=== PATIENT | male | born 1990 | race Caucasian/White ===

== ENCOUNTER 2022-03-13 08:10 | Emergency (ER) | payer OTHER, SELFPAY ==
[2022-03-13 08:11] VITALS: BP 116/81; PULSE 69; RESP 16; TEMP 36.6; O2SAT 100; BMI 31.4
[2022-03-13 08:30] VITALS: BP 120/75; PULSE 64; RESP 16; O2SAT 99
[2022-03-13 08:42] LABS: Alanine Aminotransferase 191 U/L (12-78); Albumin Level 4.9 g/dl (3.5-5.0); Albumin/Globulin Ratio 1.5 (1.1-1.8); Alkaline Phosphatase 63 U/L (38-126); Anion Gap 16.3 mEq/L (5-15); Aspartate Amino Transferase 130 U/L (17-59); Blood Urea Nitrogen 12 mg/dl (9-20); Calcium 9.6 mg/dl (8.4-10.2); Carbon Dioxide 31 mmol/L (22.0-30.0); Chloride 98 mmol/L (98-107); Creatinine Clearance Estimated 243 mL/min (50-200); Estimated Glomerular Filt Rate 132 ml/min (>60); GFR (African American) 160 ML/MIN (>60); Globulin 3.2 g/dL (1.3-3.2); Glucose 110 mg/dl (74-100); Lipase 65 U/L (23-300); Potassium 4.3 mmoL/L (3.5-5.1); Sodium 141 mmol/L (136-145); Total Protein,Serum 8.1 g/dl (6.3-8.2)
--- NOTE | 2022-03-13 08:42 | HMH.EDGENADL ---
Discharge Plan Disposition Patient Disposition: Home, Self-Care Condition: Good Prescriptions Prescriptions: New ondansetron 4 mg Tablet,Disintegrating 4 mg PO Q8H PRN (Reason: Nausea) Qty: 15 0RF Referrals Follow up/Referrals: Johnny Coombs [Primary Care Provider] - See instructions Activity Restrictions/Add. Instructions Additional Instructions/Restrictions: Follow-up on hepatitis panel lab with your primary care physician. Take antiemetic as prescribed return for persistent vomiting or any other symptoms within 8 hours. Follow-up with primary care physician within the next few days to repeat liver test. Abstain from alcohol until symptoms resolve. Clinical Impressions Clinical Impression: Hepatitis Instructions Patient Instructions: DI for Vomiting -- Adult Discharge ED Provider: Shar Perdue General Adult HPI General Chief complaint: Nausea/Vomiting/Diarrhea Stated complaint: vomiting, nausea Time Seen by Provider: 03/13/22 08:25 Mode of Arrival: Ambulatory Source of Information: Patient Limitations: No Limitations Description of Symptoms (Recalled from ER Triage Doc. by RN): Pt reports n/v since approx 10 pm lastnight. Pt reports stomach cramps that worsen when vomitting. Pt reports had a tooth pulled at dentist yesterday. History of Present Illness HPI narrative: 31-year-old male presents with nausea and vomiting. He says since last night he has had persistent symptoms. No vomiting blood, fever. He does say that he has occasional chills. No abdominal pain. No chest pain or shortness of breath. No diarrhea at this time. No headaches or neck stiffness. He said the main symptoms is the nausea. Related Data Previous Rx's Medication Instructions Recorded ondansetron 4 mg disintegrating 4 mg PO Q8H PRN Nausea #15 tabs 03/13/22 tablet Allergies Allergy/AdvReac Type Severity Reaction Status Date / Time No Known Allergies Allergy Unverified 06/10/17 15:39 PFSH PFSH Social History Smoking Status: Current every day smoker tobacco type: cigarettes packs per day: 1 alcohol intake: never current occupational status: unemployed Travel in the last 8 weeks: None ROS Obtained: Yes All systems reviewed & no additional complaints except as documented Physical Exam General General appearance: alert and in no apparent distress Eye Eye exam: Present PERRL and EOMI ENT ENT exam: Present normal exam and normal oropharynx Neck Neck exam: Present normal inspection Chest Chest inspection: Present symmetric chest wall rise Respiratory Respiratory exam: Present normal lung sounds bilaterally; Absent respiratory distress Cardiovascular Cardiovascular exam: Present regular rate and normal rhythm Abdominal Exam Abdominal exam: Present soft; Absent distention, tenderness, guarding, rebound, Beyer's sign or tenderness at McBurney's Point Rectal Exam Rectal exam: Present deferred Back Exam Back exam: Present normal inspection Neurological Exam Neurological exam: Present alert and oriented X3 Psychiatric Psychiatric exam: Present normal affect and normal mood Skin Skin exam: Present warm, dry and intact Lymphatic Lymphatic Findings: no adenopathy Medical Decision Making Medical Records Medical records reviewed: Yes I reviewed the patient's medical records. MR Comment: 31-year-old male presents with nausea and vomiting for 1 day. He is in no acute distress comfortable in the room. He has no abdominal pain or abdominal tenderness on exam. Particularly no tenderness in right lower quadrant or right upper quadrant or concern for surgical emergency. Plan to give symptomatic treatment and assess labs and reassess. 10 AM patient in no acute distress at this time symptoms have completely resolved. Ultrasound shows gallbladder sludge with liver inflammation. Sent viral hepatitis panel however it is a send out. He will follow-up on the results with his primary care physician. Recommend
[2022-03-13 08:47] LABS: Basophils # 0.2 K/mm3 (0-0.2); Basophils % 1.6 % (0.1-2.0); Eosinophils # 0.1 K/mm3 (0.0-0.4); Eosinophils % 1.1 % (0.1-12.0); Hematocrit 56.7 % (42.0-52.0); Lymphocytes # 1.6 K/mm3 (0.7-4.5); Lymphocytes % 13.2 % (10-50); Mean Corpuscular HGB Conc 33.2 g/dL (31.8-35.4); Mean Corpuscular Hemoglobin 31.2 pg (27.0-31.2); Mean Corpuscular Volume 94.1 fl (80-94); Mean Platelet Volume 10.2 fl (7.4-10.4); Monocytes # 0.7 K/mm3 (0.1-1.0); Monocytes % 5.8 % (1.7-9.3); Neutrophils # 9.2 K/mm3 (1.8-7.8); Neutrophils % 78.3 % (37.0-80.0); Platelet Count 179 K/mm3 (142-424); Red Blood Count 6.03 M/mm3 (4.60-6.20); Red Cell Distribution Width 13.1 % (11.5-17.5); White Blood Count 11.7 K/mm3 (4.8-10.8)
--- NOTE | 2022-03-13 08:52 | US_ITS ---
FINAL REPORT CLINICAL HISTORY: transaminitis, RUQ pain FINDINGS: Ultrasound images of the right upper quadrant were obtained. The liver parenchyma has focal fatty infiltration. The gallbladder is well visualized and the wall appears normal. There are no gallstones. The common duct is normal. Limited images of the right kidney demonstrate a 1.5 cm parapelvic cyst. IMPRESSION: Focal fatty infiltration of the liver. 1.5 cm right parapelvic renal cyst. Reviewed, Interpreted and Dictated by Ede Dumont MD Transcribed by Eddy Lerma Authenticated and [facility]
[2022-03-13 09:02] LABS: Hemoglobin 18.8 g/dL (14.1-18.0)
--- NOTE | 2022-03-13 09:28 | ECG_ITS ---
APPROVED REPORT Exam: Resting ECG HR:59 bpm ECG Measurements Heart Rate 59 AXES OK 179 P 74 QRSd 109 QRS 69 QT 415 T 55 QTc 415 Conclusion SINUS BRADYCARDIA BORDERLINE ECG UNCONFIRMED REPORT Electronically signed by : Wilbert Bennett MD 03/13/2022 17:41:53
--- NOTE | 2022-03-13 09:57 | PC.NURSE ---
ASHLI GLASER at going over test results.
[2022-03-13 10:31] VITALS: BP 106/47; PULSE 58; RESP 20; TEMP 36.6; O2SAT 99
== END 2022-03-13 10:33 | disposition home or self-care (01) ==
PROVIDERS: Emergency Provider Emergency Medicine; PCP Pediatrics
DX: K75.9 Inflammatory liver disease, unspecified (principal)
CPT/HCPCS: 76705; 80053; 83690; 85025; 93005; 96361; 96374; 99284

== ENCOUNTER 2024-11-07 10:28 | Emergency (ER) | payer MEDICAID, SELFPAY ==
[2024-11-07 10:43] VITALS: BP 133/74; PULSE 76; RESP 18; TEMP 37.1; O2SAT 98; BMI 30.8
[2024-11-07] MEDS: TET/DIPHTH/PERT-ADULT 0.5ML SYRINGE 0.5 ML IM (11:41)
--- NOTE | 2024-11-07 12:06 | HMH.EDGENADL ---
Discharge Plan Disposition Patient Disposition: Home, Self-Care Prescriptions Prescriptions: New cephalexin 500 mg capsule 500 mg PO TID 5 Days Qty: 15 0RF No Action ondansetron 4 mg Tablet,Disintegrating 4 mg PO Q8H PRN (Reason: Nausea) Qty: 15 0RF Referrals Follow up/Referrals: Johnny Coombs [Primary Care Provider] - See instructions Activity Restrictions/Add. Instructions Additional Instructions/Restrictions: Please watch for spreading redness or pus coming from your wound and take your prophylactic antibiotics and have your sutures removed in 7 to 10 days. Keep topical antibiotic ointment such as Neosporin on this daily for the next week as well. Clinical Impressions Clinical Impression: Laceration of knee, left Instructions Patient Instructions: DI for Laceration Repair Print Language Print Language: Ukrainian Discharge ED Provider: Carin Grace General Adult HPI General Chief complaint: Wound/Laceration Stated complaint: [id number] to L knee Time Seen by Provider: 11/07/24 11:44 Mode of Arrival: Ambulatory Source of Information: Patient Description of Symptoms (Recalled from ER Triage Doc. by RN): left knee laceration. was grinding on a piece of machinery and it slipped History of Present Illness HPI narrative: 34-year-old male with medial left knee laceration from a piece of grinding machinery that was contaminated with soil and rust. Related Data Previous Rx's ?Medication ?Instructions ?Recorded ondansetron 4 mg disintegrating 4 mg PO Q8H PRN Nausea #15 tabs 03/13/22 tablet cephalexin 500 mg capsule 500 mg PO TID 5 days #15 caps 11/07/24 Allergies Allergy/AdvReac Type Severity Reaction Status Date / Time No Known Allergies Allergy Unverified 06/10/17 15:39 [facility] Disclaimer: The information contained in this section may have been updated after the patient was seen, as this information can be updated by other users. Social History Smoking Status: Current every day smoker tobacco type: cigarettes packs per day: 1 alcohol intake: never current occupational status: unemployed Travel in the last 8 weeks?: None Have you lived/traveled outside [place] in past 30 days?: No Contact w/someone who lives/traveled outside [place] past 30 days?: No Exposure to someone with infectious disease in past 14 days?: No Do you have a fever (greater than 100.4 F or 38 C)?: No Have you tested positive for COVID-19?: No Exposed to someone with COVID-19 in past 14 days?: No Do you have a sore throat?: No Do you have a cough?: No Do you have any weakness?: No Do you have any diarrhea?: No Are you experiencing any unusual bleeding?: No Do you have any muscle aches/pain?: No Do you have any abdominal pain?: No Are you experiencing loss of taste or smell?: No ROS Obtained: Yes All systems reviewed & no additional complaints except as documented Physical Exam General General appearance: alert and in no apparent distress Respiratory Respiratory exam: Present normal lung sounds bilaterally Cardiovascular Cardiovascular exam: Present regular rate Expanded Lower Extremity Exam Left: Leg image: 1. 2 cm laceration of the medial aspect of the left knee base of the bloodless field able to visualize no concern for traumatic arthrotomy Neurological Exam Neurological exam: Present alert and oriented X3 Medical Decision Making Medical Records Screening: Per USPSTF and CDC recommendations, given the prevalence of disease in our region, it is our hospital?s policy to screen for HIV and viral Hepatitis for all patients aged 18 and over and those with ongoing risk factors. Ezekiel Inquiry Pt receiving controlled substance: No Vital Signs: 11/07/24 10:43 Temperature 98.7 F Temperature Source Oral Pulse Rate [Right] 76 Respiratory Rate 18 Blood Pressure [Right Arm] 133/74 Blood Pressure Mean [Right Arm] 93 02 Sat by Pulse Oximetry 98 Oxygen Delivery Method Room Air Orders (Tests/Meds): ED MEDICATIONS Discontinued Medications Generic Name Dose Route Start Last Admin Trade Name Freq PRN Reason Stop Dose Admin Tetanus/Reduced Diphtheria/Acell Pertussis 0.5 ml 11/07/24 10:48 11/07/24 11:41 Tet/Diphth/Pert-Adult 0.5ml Syringe IM 11/07/24 10:49 0.5 ml .ONCE ONE Administration Medical Decision Narrative: 34-year-old above history and physical no concern for traumatic arthrotomy had a superficial laceration the medial aspect of the left leg that was repaired primarily with nylon sutures. Given the fact that this was a soil contamination we will give prophylactic antibiotics. Tdap was updated return precautions emphasized wound management discussed will have sutures removed in 7 to 10 days patient discharged in stable condition. Procedures Laceration Laceration 1: Site: lower extremity Side (If applicable): left Size (cm): 2 Description: linear Depth: simple, single layer Local Anesthetic: lidocaine 1% and with epi Pre-repair: wound explored and irrigated extensively Skin layer closed with: nylon Size (cm): 3-0 Number of sutures: 3 Critical Care Critical Care Time Critical Care Time: No
[2024-11-07 12:08] VITALS: BP 132/71; PULSE 71; RESP 18; TEMP 36.9; O2SAT 99
== END 2024-11-07 12:11 | disposition home or self-care (01) ==
PROVIDERS: Emergency Provider Student in an Organized Health Care Education/Training Program; PCP Pediatrics
DX: S81.012A Laceration without foreign body, left knee, initial encounter (principal); W31.1XXA Contact with metalworking machines, initial encounter; Z23 Encounter for immunization
CPT/HCPCS: 12001; 90471; 90715; 99283; J2004